=== PATIENT | male | born 1940 | race Caucasian/White ===

== ENCOUNTER 2016-09-25 14:56 | Outpatient (RCR) | payer MEDICARE, OTHER ==
[~2016-09-25 14:56] MED LIST: ACET-789 PO; AMLO10TA82 PO; AMOX500C2 PO; ASP81CT PO; COLE1TAB PO; CPR250T PO; DEXT1TAB13 PO; DOCU100C PO; GLIP10TA13 PO; HYDR1TAB86 PO; INSU100C4 SQ; KETO5DRO2 OU; LISI20TA PO; LISI40TA PO; LVT.112T PO; MTP50T PO; OMG1KC PO; ROSU20TA14 PO; SILO4CAP PO; TAMS0.4C2 PO; TIZA4TAB55 PO; [UNRECOGNIZED DRUG - OTHER] OU
== END 2016-12-24 | disposition home or self-care (01) ==
LOC: ONC 14:56
PROVIDERS: ATTEND Radiology Radiation Oncology
DX: C61 Malignant neoplasm of prostate (principal)
CPT/HCPCS: 99213